=== PATIENT | female | born 1950 | race Caucasian/White ===

== ENCOUNTER 2017-07-25 11:44 | Day surgery (SDC) | payer OTHER ==
[~2017-07-25] VITALS: Ht 157.5 cm; Wt 87.1 kg
[~2017-07-25 11:44] MED LIST: ALENDRONATE SOD70 MG PO; ASPIRIN81 M2 PO; CALTRATE PLUS1 EACH PO; CALTRATE PO; CITRATE OF MAG296 ML PO; COLACE100 MG PO; COZAAR100 MG PO; CYANOCOBALAM1000 MCG PO; FIORICET 50-301 EACH PO; FLOMAX0.4 MG PO; GLUCOSAMINE CH1 EAC6 PO; JANUMET 50/11 TABLET PO; KOMBIGLYZE XR1 EAC2 PO; LEVAQUIN500 MG PO; MULTIVITAMIN1 EAC2 PO; NAPROSYN500 MG PO; NORVASC5 MG PO; PANTOPRAZOLE SO40 MG PO; PERCOCET 5/31 TABLET PO; SIMVASTATIN20 MG PO; VITAMIN B-12250 MCG PO; VITAMIN B-125000 MC1 PO; VITAMIN B-6 PO; VITAMIN B-6100 MG PO
[2017-07-25 12:31] LABS: POINT-OF-CARE METER ID UU14174212
[2017-07-25 13:04] VITALS: BP 170/80
[2017-07-25 15:49] LABS: POINT-OF-CARE METER ID UU13113675; POINT-OF-CARE USER ID ADMKMM76
[2017-07-25 17:40] VITALS: BP 163/77
[2017-07-25 18:02] LABS: POINT-OF-CARE METER ID UU14208750
[2017-07-25 19:28] VITALS: BP 148/75
[2017-07-25 19:39] LABS: HEMATOCRIT 41.6 % (36.0-46.0); MCH 29.1 PG (29.0-34.0); MCHC 32.9 G/DL (30.0-36.0); MCV 88.5 FL (83-99); MEAN PLAT.VOLUME 9.7 uM^3 (9.5-12.4); PLATELET COUNT 253 K/uL (156-360); RBC DIS.WIDTH-CV 13.3 % (11.8-14.6); RBC DIS.WIDTH-SD 43.6 % (39-53); WHITE BLOOD COUNT 11.9 K/uL (4.1-10.2)
[2017-07-25 20:02] LABS: ANION GAP 10 MEQ/L (2-14); CHLORIDE 101 MEQ/L (99-109); GFR ESTIMATE (CALCULATED) > 59 mL/min/; GLUCOSE 247 mg/dL (70-99); SAMPLE HEMOLYSIS CHECK 0; SAMPLE ICTERIC CHECK 0; SAMPLE LIPEMIA CHECK 0; SODIUM 136 MEQ/L (136-147); UREA NITROGEN (BUN) 17 mg/dL (9-23)
[2017-07-25 23:24] VITALS: BP 141/70
[2017-07-25 23:32] LABS: POINT-OF-CARE METER ID UU14208750
[2017-07-26 03:56] VITALS: BP 135/72
[2017-07-26 05:51] LABS: POINT-OF-CARE METER ID UU14208750
[2017-07-26 06:49] LABS: HEMATOCRIT 38.3 % (36.0-46.0); MCHC 32.1 G/DL (30.0-36.0); MCV 87.2 FL (83-99); MEAN PLAT.VOLUME 9.5 uM^3 (9.5-12.4); PLATELET COUNT 259 K/uL (156-360); RBC DIS.WIDTH-CV 13.3 % (11.8-14.6); RBC DIS.WIDTH-SD 42.7 % (39-53); RED BLOOD COUNT 4.39 M/uL (3.80-5.20); WHITE BLOOD COUNT 9.8 K/uL (4.1-10.2)
[2017-07-26 07:12] LABS: ANION GAP 6 MEQ/L (2-14); CHLORIDE 104 MEQ/L (99-109); GFR ESTIMATE (CALCULATED) > 59 mL/min/; POTASSIUM 4.2 MEQ/L (3.7-5.4); SAMPLE HEMOLYSIS CHECK 0; SAMPLE ICTERIC CHECK 0; SAMPLE LIPEMIA CHECK 0; SODIUM 140 MEQ/L (136-147); UREA NITROGEN (BUN) 13 mg/dL (9-23)
[2017-07-26 07:16] LABS: GLUCOSE 114 mg/dL (70-99)
[2017-07-26 09:02] VITALS: BP 150/75
== END 2017-07-26 12:26 | disposition home or self-care (01) ==
LOC: SDC 11:44 → 2SOUTH 15:30 → ENRESERV 15:32 → 2EASTP 17:29
PROVIDERS: Obstetrics & Gynecology Gynecologic Oncology
DX: N81.3 Complete uterovaginal prolapse (principal); D25.9 Leiomyoma of uterus, unspecified; N80.0 Endometriosis of uterus; G43.909 Migraine, unspecified, not intractable, without status migrainosus; R42 Dizziness and giddiness; I10 Essential (primary) hypertension; E11.21 Type 2 diabetes mellitus with diabetic nephropathy; E78.5 Hyperlipidemia, unspecified; K21.9 Gastro-esophageal reflux disease without esophagitis; E66.9 Obesity, unspecified; Z68.35 Body mass index [BMI] 35.0-35.9, adult; I87.2 Venous insufficiency (chronic) (peripheral); Z82.49 Family history of ischemic heart disease and other diseases of the circulatory system; Z80.8 Family history of malignant neoplasm of other organs or systems; Z83.3 Family history of diabetes mellitus; Z79.82 Long term (current) use of aspirin; Z79.4 Long term (current) use of insulin; Z88.2 Allergy status to sulfonamides
CPT/HCPCS: 80048; 82948; 85027; 88302; 88307; G0378; J0131; J0171; J0690; J1170; J1815; J1940; J2250; J2405; J2550; J2765; J3010; J7120